=== PATIENT | male | born 1985 | race Caucasian/White ===

== ENCOUNTER 2021-08-16 13:19 | Emergency (ER) | payer OTHER ==
--- NOTE | 2021-08-16 15:35 | EDM.PDOC ---
ED HPI GENERAL MEDICAL PROBLEM - General Chief Complaint: Respiratory Problem Stated Complaint: COVID SYMPTOMS Time Seen by Provider: 08/16/21 15:33 - History of Present Illness INITIAL COMMENTS - FREE TEXT/NARRATIVE: History of present illness: [] This patient with a history of asthma who only needed his inhaler and nebulizer when he was in [place] where the humidity was problem has not needed it since he moved here. Unfortunately he has had increasing shortness of breath tightness in his chest and cough since yesterday and had a Covid test that was negative at one facility but it was a rapid test so we repeated it at home and it was positive. He has an invalid son who is wheelchair and bed ridden. He has 2 other family members at home that also have symptoms. Review of systems: As per history of present illness and below otherwise all systems reviewed and negative. Past medical history: As per history of present illness and as reviewed below otherwise noncontributory. Surgical history: As per history of present illness and as reviewed below otherwise noncontributory. Social history: No reported history of drug or alcohol abuse. Family history: As per history of present illness and as reviewed below otherwise noncontributory. Physical exam: Constitutional -BMI 30.8-well developed, well-nourished and in no acute distress HEENT - normocephalic, no evidence of trauma - external nose and mouth normal - no mass in neck and no JVD - mucosae moist EYES - full EOM, PERRL, no icterus - no evidence of inflammation, injection, or drainage Respiratory - no respiratory distress, equal bilateral expansion, lungs breath sounds slightly coarse and expiratory phase prolonged somewhat Cardiovascular - Regular Rhythm with S1 and S2 appreciated and no murmur, gallop or rub. GI - abdomen soft without distension or organomegaly - normal bowel sounds - no guard or rebound Musculoskeletal no gross deformity of long bones or joints - no tenderness, swelling or edema Neurologic - Alert and oriented times four - CN II-XII grossly intact - motor sensory and coordination symmetrically normal Psychiatric - appropriate mood and affect with normal thought content Hematologic - No petechiae or purpura - mucosa appropriate color and sclera not pale - normal nail bed color and refill Integument - no rash or evidence of trauma - normal turgor Diagnostics: [] Therapeutics: [] Impression: [] Plan: [] Definitive disposition and diagnosis as appropriate pending reevaluation and review of above. - Related Data Allergies Allergy/AdvReac Type Severity Reaction Status Date / Time No Known Allergies Allergy Verified 08/16/21 14:44 Home Meds: Home Meds Albuterol [Proventil Neb Soln] 2.5 mg .XX Q4H PRN #25 ampule 08/16/21 [Rx] predniSONE [Prednisone] 60 mg PO DAILY #15 tablet 08/16/21 [Rx] Past Medical History - Past Health History Medical/Surgical History: Denies Medical/Surgical History - Infectious Disease History Infectious Disease History: Reports: None Social & Family History - Family History Family Medical History: No Pertinent Family History - Tobacco Use Tobacco Use Status *Q: Never Tobacco User - Caffeine Use Caffeine Use: Reports: None - Recreational Drug Use Recreational Drug Use: No ED ROS GENERAL - Review of Systems Review Of Systems: Comprehensive ROS is negative, except as noted in HPI. ED EXAM, GENERAL - Physical Exam Exam: See Below Free Text/Narrative:: My physical exam is in the HPI Course - Vital Signs Text/Narrative:: We discussed monoclonal antibodies the patient himself is not debilitated in any way with his asthma which is bad only when he is in moist environments like when he was in [place]. He also is technically overweight but is quite healthy and active. He chose not to get monoclonal antibodies but will recommend to his son's doctor because his son is debilitated. Last Recorded V/S: Last Vital Signs Temp 36.7 C 08/16/21 15:29 Pulse 91 08/16/21 16:24 Resp 16 08/16/21 16:24 BP 105/78 08/16/21 16:24 Pulse Ox 99 08/16/21 16:24 - Orders/Labs/Meds Labs: Laboratory Tests 08/16/21 Range/Units 15:50 SARS-CoV-2 RNA ([facility]OS) POSITIVE H (NEGATIVE) Departure - Departure Time of Disposition: 17:15 Disposition: Home, Self-Care 01 Condition: Good Clinical Impression: Bronchitis due to COVID-19 virus - Discharge Information Prescriptions: predniSONE [Prednisone] 60 mg PO DAILY #15 tablet Albuterol [Proventil Neb Soln] 2.5 mg .XX Q4H PRN #25 ampule PRN Reason: Dyspnea Instructions: COVID-19 Vaccine Information, Symptoms of COVID-19 - [facility] (12/30/2020), COVID-19 Frequently Asked Questions, 10 Things You Can Do to Manage Your COVID-19 Symptoms at Home - [facility] (05/23/2021), COVID-19: Quarantine vs. Isolation - [facility] (10/24/2020) Referrals: Sharon Raymond DO [Primary Care Provider] - Forms: ED Department Discharge Additional Instructions: Rest, drink plenty of fluids, use [id number] medications for pain or fever. [facility] [address] [place] [id number] [facility] [address] [place] [id number] The following information is given to patients seen in the emergency department who are being discharged to home. This information is to outline your options for follow-up care. We provide all patients seen in our emergency department with a follow-up referral. The need for follow-up, as well as the timing and circumstances, are variable depending upon the specifics of your emergency department visit. If you don't have a primary care physician on staff, we will provide you with a referral. We always advise you to contact your personal physician following an emergency department visit to inform them of the circumstance of the visit and for follow-up with them and/or the need for any referrals to a consulting specialist. The emergency department will also refer you to a specialist when appropriate. This referral assures that you have the opportunity for follow-up care with a specialist. All of these measure are taken in an effort to provide you with optimal care, which includes your follow-up. Under all circumstances we always encourage you to contact your private physician who remains a resource for coordinating your care. When calling for follow-up care, please make the office aware that this follow-up is from your recent emergency room visit. If for any reason you are refused follow-up, please contact the [facility] at and asked to speak to the emergency department charge nurse. Sepsis Event Note (ED) - Focused Exam Vital Signs: Vital Signs Temp Pulse Resp BP Pulse Ox 08/16/21 16:24 91 16 105/78 99 08/16/21 15:29 36.7 C 87 16 125/79 97 08/16/21 14:44 36.8 C 96 18 113/78 97
--- NOTE | 2021-08-16 16:43 | CR ---
INDICATION: Cough, shortness of breath. TECHNIQUE: Portable AP chest radiograph. COMPARISON: None. FINDINGS: No focal pulmonary opacity, pneumothorax, or pleural effusion. Normal cardiac and mediastinal contours. IMPRESSION: No acute cardiopulmonary findings. Dictated by Chucky Paulino MD @ 08/16/2021 4:40:31 PM Dictated by: Chucky Paulino MD @ 08/16/2021 16:40:35 (Electronically Signed)
== END 2021-08-16 17:30 | disposition home or self-care (01) ==
LOC: MW.ED 13:19
DX: U07.1 COVID-19 (principal); J40 Bronchitis, not specified as acute or chronic
CPT/HCPCS: 71045; 71045-26; 87804; 99285-25; U0002

== ENCOUNTER 2023-07-26 14:11 | Emergency (ER) | payer OTHER ==
[~2023-07-26 14:11] MED LIST: Sodium Chloride 0.9% 10 ML Syringe FLUSH PRN; Sodium Chloride 0.9% 2.5 ML Syringe FLUSH PRN
[2023-07-26] MEDS ORDERED: Aspirin 81 MG Tab.Chew PO STA (14:18)
[2023-07-26 15:05] LABS: BASOPHILS PERCENT AUTO 0.3 % (0.0-1.5); EOSINOPHILS ABSOLUTE AUTO 0.1 K/uL (0.0-0.7); EOSINOPHILS PERCENT AUTO 1.4 % (0.0-7.0); HEMATOCRIT 46.4 % (38.0-50.0); HEMOGLOBIN 16.8 g/dL (13.0-17.0); LYMPHOCYTES ABSOLUTE AUTO 2.5 K/uL (0.6-2.4); LYMPHOCYTES PERCENT AUTO 26.8 % (16.0-40.0); MEAN CORPUSCULAR HEMOGLOBIN 30.7 pg (27.0-32.0); MEAN CORPUSCULAR HGB CONC 36.2 g/dL (31.0-37.0); MEAN CORPUSCULAR VOLUME 84.8 fL (80.0-98.0); MONOCYTES ABSOLUTE AUTO 0.8 K/uL (0.0-0.8); MONOCYTES PERCENT AUTO 8.2 % (0.0-15.0); NEUTROPHILS PERCENT AUTO 63.3 % (48.0-80.0); NRBC ABSOLUTE 0 K/uL; PLATELET COUNT,PLT 203 K/uL (150-400); RED BLOOD CELL COUNT 5.47 M/uL (4.50-5.90); WHITE BLOOD CELL COUNT,WBC 9.47 K/uL (4.0-11.0)
[2023-07-26 15:35] LABS: A/G RATIO 1.2 (0.9-1.6); BILIRUBIN TOTAL 0.7 mg/dL (0.2-1.0); CALCIUM 8.8 mg/dL (8.5-10.1); CARBON DIOXIDE,CO2 26.3 mmol/L (21.0-32.0); CREATININE 1.3 mg/dL (0.8-1.3); EST CRCL DRUG DOSING (CG) 80.45 mL/min; MAGNESIUM 2.2 mg/dL (1.8-2.4); POTASSIUM,K 3.5 mmol/L (3.5-5.1); PROTEIN TOTAL,TP 7.3 g/dL (6.4-8.2)
== END 2023-07-26 18:14 | disposition home or self-care (01) ==
LOC: MW.ED 14:11
DX: R07.89 Other chest pain (principal); B02.9 Zoster without complications
CPT/HCPCS: 36415; 71046; 80053; 83690; 83735; 84484; 85025; 93005; 99285; J3490; 93010; 99283